=== PATIENT | male | born 1955 | race Caucasian/White ===

== ENCOUNTER → 2024-06-20 | Day surgery (SDC) | payer MEDICARE ==
[2024-06-13 12:49] LABS: BASOPHILS # (AUTO) 0.1 (0.0-0.1); BASOPHILS % 0.7 % (0.0-1.0); EOSINOPHILS # (AUTO) 0.2 (0.0-0.4); HEMATOCRIT 44.6 % (38.2-49.6); HEMOGLOBIN 14.8 g/dL (14.0-18.0); LYMPHOCYTES # (AUTO) 2.6 (1.0-3.2); LYMPHOCYTES % 37.7 % (18.0-39.1); MEAN CORPUSCULAR HEMOGLOBIN 29.6 pg (28-32); MEAN CORPUSCULAR HGB CONC 33.2 g/dL (31-35); MEAN CORPUSCULAR VOLUME 89.2 fL (81-99); MONOCYTES # (AUTO) 0.6 (0.2-0.8); MONOCYTES % 8.4 % (4.4-11.3); NEUTROPHILS # (AUTO) 3.5 (2.1-6.9); NEUTROPHILS % 49.9 % (38.7-80.0); PLATELET COUNT 179 x10e3/uL (140-360); RED CELL DISTRIBUTION WIDTH 12.9 % (11.7-14.4); WHITE BLOOD COUNT 7.01 x10e3/uL (4.8-10.8)
[~2024-06-20] MED LIST: FENOFIBRATE145 MG PO; FLOMAX0.4 MG PO; FRUIT & VEGETA1 EACH PO; LIDOCAINE HCL 2% LOCAL INJ 5 ML SDV VIAL INJ ONE; METOPROLOL SUCC25 MG PO; OMEGA PLUS PO; PROPOFOL IV EMULSION 10 MG/ML 20 ML VIAL ONE; PROSTATE HEALT1 EAC1 PO
[2024-06-20] MEDS: LACTATED RINGER'S 1,000 ML ONE (09:27)
[2024-06-20 11:22] VITALS: TEMP 97
[2024-06-20 11:50] VITALS: BP 112/65; PULSE 55; RESP 55; O2SAT 100
== END | disposition home or self-care (01) ==
LOC: OR 07:06
PROVIDERS: ATTEND Internal Medicine Gastroenterology
DX: Z09 Encounter for follow-up examination after completed treatment for conditions other than malignant neoplasm (principal); D12.3 Benign neoplasm of transverse colon; K57.30 Diverticulosis of large intestine without perforation or abscess without bleeding; K64.8 Other hemorrhoids; G47.33 Obstructive sleep apnea (adult) (pediatric); Z78.9 Other specified health status; R00.1 Bradycardia, unspecified; Z01.810 Encounter for preprocedural cardiovascular examination; Z01.812 Encounter for preprocedural laboratory examination; Z79.899 Other long term (current) drug therapy
CPT/HCPCS: 36415; 45385; 85025; 88305; 93005; J2001; J2704; J7121